=== PATIENT | female | born 1950 | race Caucasian/White ===

== ENCOUNTER 2018-09-21 21:44 | Outpatient (REF) | payer OTHER, SELFPAY ==
[2018-09-21 21:30] LABS: HCT 39.2 % (36.0-46.0); HGB 12.7 g/dL (12.0-15.5); Mean Corp. HGB Concentration 32.4 g/dL (32.0-36.0); Mean Corpuscular Hemoglobin 32.1 pg (27.0-33.0); Mean Platelet Volume 10.8 fL (8.0-11.0); Platelet Count 217 x1000/uL (130-400); RBC 3.96 m/cumm (4.00-5.20); RBC Distribution Width 13.4 % (11.7-14.6); White Blood Cell Count 4.82 k/cumm (4.4-10.8)
[2018-09-21 22:01] LABS: TSH 2.04 uIU/mL (0.358-3.74)
== END 2018-09-21 22:04 ==
LOC: NCHCN 21:44
PROVIDERS: PCP Nurse Practitioner Family; Visit Provider Nurse Practitioner Family
DX: F32.9 Major depressive disorder, single episode, unspecified (principal); R53.83 Other fatigue
CPT/HCPCS: 85027; 84443

== ENCOUNTER 2020-05-06 13:29 | Outpatient (REF) | payer OTHER, SELFPAY ==
[2020-05-10 10:13] LABS: Patient Race White; SARS-CoV-2 RNA Undetected (Undetected); SARS-CoV-2 Specimen Source Nasal
== END 2020-05-06 13:49 ==
LOC: NCHCN 13:29
PROVIDERS: PCP Nurse Practitioner Family; Visit Provider Nurse Practitioner Family
DX: J06.9 Acute upper respiratory infection, unspecified (principal)
CPT/HCPCS: U0003

== ENCOUNTER 2023-06-19 10:33 | Outpatient (REF) | payer MEDICARE, SELFPAY ==
[2023-06-19 15:00] LABS: HCT 36.1 % (36.0-46.0); HGB 11.9 g/dL (11.2-15.7); MCH 31.8 pg (27.0-33.0); MCV 97 fL (80-95); MPV 10.1 fL (8.0-11.0); Platelet Count 230 10^3/uL (130-400); RBC 3.74 10^6/uL (3.93-5.22); RDW 14.1 % (11.7-14.6); RDW-SD 49.8 fL; WBC 5.35 10^3/uL (4.4-10.8)
[2023-06-19 15:32] LABS: ALT 35 U/L (14-59); AST 27 U/L (15-37); Albumin 3.9 g/dL (3.4-5.0); Alkaline Phosphatase 61 U/L (46-116); Anion Gap 5.1 mmol/L (3-11); BUN 21 mg/dL (7-18); Bilirubin, Total 0.3 mg/dL (0.2-1.0); CO2 30.9 mmol/L (21.0-32.0); CREATININE 1.3 mg/dL (0.55-1.02); Calcium 9.6 mg/dL (8.5-10.1); Calculated LDL 187 mg/dL (<100); Chloride 101 mmol/L (98-107); Cholesterol 297 mg/dL (<200); Estimated GFR 43.42 (mL/min/1.73m2); Glucose 80 mg/dL (74-106); HDL Cholesterol 96 mg/dL (40-60); Potassium 4.4 mmol/L (3.5-5.1); Sodium 137 mmol/L (136-145); TSH (W/Ref FT4) 3.48 uIU/mL (0.36-3.74); Total Protein 7.7 g/dL (6.4-8.2); Triglyceride 72 mg/dL (<150)
== END 2023-06-19 10:34 | disposition home or self-care (01) ==
LOC: NCHCN 10:33
PROVIDERS: PCP Nurse Practitioner Family; Visit Provider Nurse Practitioner Family
DX: Z13.6 Encounter for screening for cardiovascular disorders (principal)
CPT/HCPCS: 80053; 80061; 85027; 84443

== ENCOUNTER 2024-09-12 08:53 | Outpatient (REF) | payer MEDICARE, SELFPAY ==
[2024-09-12 14:53] LABS: HCT 35.7 % (36.0-46.0); HGB 11.6 g/dL (11.2-15.7); MCH 31.5 pg (27.0-33.0); MCHC 32.5 % (32.0-36.0); MCV 97 fL (80-95); Platelet Count 234 10^3/uL (130-400); RBC 3.68 10^6/uL (3.93-5.22); RDW 13.3 % (11.7-14.6); RDW-SD 47.8 fL; WBC 4.29 10^3/uL (4.4-10.8)
[2024-09-12 15:31] LABS: ALT 30 U/L (14-59); AST 23 U/L (15-37); Albumin 3.7 g/dL (3.4-5.0); Alkaline Phosphatase 74 U/L (46-116); Anion Gap 8.9 mmol/L (3-11); BUN 24 mg/dL (7-18); Bilirubin, Total 0.3 mg/dL (0.2-1.0); CO2 31.1 mmol/L (21.0-32.0); CREATININE 1.1 mg/dL (0.55-1.02); Calcium 9.5 mg/dL (8.5-10.1); Calculated LDL 145 mg/dL (<100); Chloride 105 mmol/L (98-107); Cholesterol 259 mg/dL (<200); Estimated GFR 52.73 (mL/min/1.73m2); Glucose 84 mg/dL (74-106); HDL Cholesterol 105 mg/dL (>or=50); Potassium 4.5 mmol/L (3.5-5.1); Sodium 145 mmol/L (136-145); Total Protein 7.1 g/dL (6.4-8.2); Triglyceride 49 mg/dL (<150); Vitamin B12 745 pg/mL (193-986); Vitamin D 25 Total 79 ng/mL (30-100)
[2024-09-12 15:57] LABS: Iron 95 ug/dL (50-170); Total Iron Binding Capacity 339 ug/dL (250-450); Transferrin Sat 28 % (15-50)
== END 2024-09-12 08:54 | disposition home or self-care (01) ==
LOC: NCHCN 08:53
PROVIDERS: PCP Nurse Practitioner Family; Visit Provider Nurse Practitioner Family
DX: E78.5 Hyperlipidemia, unspecified (principal); R41.89 Other symptoms and signs involving cognitive functions and awareness
CPT/HCPCS: 80053; 80061; 82306; 85027; 82607; 83540; 83550; 84443

== ENCOUNTER 2024-12-12 16:06 | Outpatient (REF) | payer MEDICARE, SELFPAY ==
[2024-12-12 21:41] LABS: HCT 33.7 % (36.0-46.0); HGB 11.0 g/dL (11.2-15.7); MCH 31.6 pg (27.0-33.0); MCHC 32.6 % (32.0-36.0); MCV 97 fL (80-95); MPV 10.2 fL (8.0-11.0); Platelet Count 194 10^3/uL (130-400); RBC 3.48 10^6/uL (3.93-5.22); RDW 13.3 % (11.7-14.6); RDW-SD 47.6 fL; WBC 5.06 10^3/uL (4.4-10.8)
[2024-12-12 22:26] LABS: ALT 29 U/L (14-59); AST 25 U/L (15-37); Albumin 4.0 g/dL (3.4-5.0); Alkaline Phosphatase 74 U/L (46-116); Anion Gap 8.9 mmol/L (3-11); BUN 22 mg/dL (7-18); Bilirubin, Total 0.2 mg/dL (0.2-1.0); CO2 28.1 mmol/L (21.0-32.0); Calcium 9.6 mg/dL (8.5-10.1); Chloride 102 mmol/L (98-107); Estimated GFR 52.40 (mL/min/1.73m2); Folate > 20.0 ng/mL (8.6-20.0); Glucose 90 mg/dL (74-106); Potassium 4.9 mmol/L (3.5-5.1); Sodium 139 mmol/L (136-145); Total Protein 7.2 g/dL (6.4-8.2); Vitamin B12 757 pg/mL (193-986)
== END 2024-12-12 16:07 | disposition home or self-care (01) ==
LOC: NCHCN 16:06
PROVIDERS: PCP Nurse Practitioner Family; Visit Provider Family Medicine
DX: R26.89 Other abnormalities of gait and mobility (principal)
CPT/HCPCS: 80053; 85027; 82607; 82746